=== PATIENT | female | born 1965 | race Caucasian/White ===

== ENCOUNTER 2017-11-01 03:00 | Observation (INO) | payer MEDICAID ==
[~2017-11-01] VITALS: Ht 5703.2 cm; Wt 86.0 kg
[~2017-11-01 03:00] MED LIST: ALBU18HF2 INH; GUAI5SYR5 PO; TIOT18CA3 INH
[2017-11-01] MEDS ORDERED: albuterol 2.5 MG/3 ML nebule NEB ONE (03:10)
[2017-11-01] MEDS ORDERED: albuterol 2.5 MG/3 ML nebule CONTNEB PRN (03:25)
[2017-11-01] MEDS ORDERED: magnesium 2GM in 50ml NS 50 ML IV ONE (03:25)
[2017-11-01] MEDS ORDERED: methylPREDNISolone sod succ 125mg/2ml vial IV ONE (03:25)
[2017-11-01 03:31] LABS: BASOPHILS # (AUTO) 0.1 X10'3 (0-0.2); BASOPHILS % (AUTO) 0.6 % (0-1); EOSINOPHILS # (AUTO) 1.4 X10'3 (0-0.9); EOSINOPHILS % (AUTO) 11.5 % (0-6); HEMATOCRIT 52.7 % (35.0-45.0); HEMOGLOBIN 17.5 g/dl (12.0-16.0); LYMPHOCYTES % (AUTO) 16.3 % (21-51); MEAN CORPUSCULAR HEMOGLOBIN 29.4 PG (27.0-31.0); MEAN CORPUSCULAR HGB CONC 33.3 % (33.0-36.5); MEAN CORPUSCULAR VOLUME 88.4 FL (78-98); MEAN PLATELET VOLUME 8.2 FL (7.4-10.4); MONOCYTES # (AUTO) 0.5 X10'3 (0-0.9); NEUTROPHILS # (AUTO) 8.4 X10'3 (1.8-7.7); NEUTROPHILS % (AUTO) 67.6 % (42-75); PLATELET COUNT 316 X10'3 (140-440); RED BLOOD COUNT 5.97 X10'6 (4.20-5.60); RED CELL DISTRIBUTION WIDTH 14.1 % (11.5-14.5); WHITE BLOOD COUNT 12.4 X10'3 (4.5-11.0)
[2017-11-01 03:45] LABS: PARTIAL THROMBOPLASTIN TIME 27 SECONDS (22-32); PROTHROMBIN TIME 10.3 SECONDS (9.0-12.0)
[2017-11-01 03:56] LABS: ALANINE AMINOTRANSFERASE 29 U/L (12-78); ALBUMIN 4.5 G/DL (3.4-5.0); ALBUMIN/GLOBULIN RATIO 1.2 (1.1-1.5); ALKALINE PHOSPHATASE 91 IU/L (46-116); ANION GAP 9 (8-16); ASPARTATE AMINO TRANSFERASE 19 U/L (10-37); BILIRUBIN,TOTAL 0.3 MG/DL (0.1-1.0); BLOOD UREA NITROGEN 16 MG/DL (7-18); BUN/CREATININE RATIO 18.8 (6.6-38.0); CALCIUM 9.7 MG/DL (8.5-10.1); CHLORIDE 104 MMOL/L (99-107); CREATININE 0.85 MG/DL (0.40-0.90); GLUCOSE 108 MG/DL (70-104); SODIUM 144 MMOL/L (135-145); TOTAL CARBON DIOXIDE 30.8 MMOL/L (24-32); TOTAL PROTEIN 8.4 G/DL (6.4-8.2); eGFR 70 ML/MIN
[2017-11-01] MEDS ORDERED: albuterol 2.5 MG/3 ML nebule NEB PRN (09:45)
[2017-11-01] MEDS ORDERED: normal saline 1000ML IV soln IVB ONE (09:45)
[2017-11-01] MEDS ORDERED: ondansetron/PF 4mg/2ml inj IV PRN (09:45)
[2017-11-01] MEDS ORDERED: magnesium hydroxide 30ml (MOM) UD suspension PO PRN (09:45)
[2017-11-01] MEDS ORDERED: acetaminophen 325mg tablet PO PRN ×2 (09:45)
[2017-11-01] MEDS ORDERED: mag hydrox/Alum hydrox/simeth 30ml oral suspension PO PRN (09:45)
[2017-11-01] MEDS: enoxaparin 40mg/0.4ml syringe SUBCUT SCH (10:10)
[2017-11-01] MEDS: azithromycin 250mg tablet PO SCH (10:10)
[2017-11-01] MEDS: ipratropium/albuterol 3ml nebule NEB SCH ×3 (12:11→19:03)
[2017-11-01] MEDS: HYDROcodone/acetaminophen 5mg/325mg tablet PO PRN (12:43)
[2017-11-01 13:22] LABS: URINE AMPHETAMINE SCREEN POSITIVE (Neg); URINE BARBITUATE SCREEN NEGATIVE (Neg); URINE BENZODIAZEPINES SCREEN NEGATIVE (Neg); URINE CANNABINOID SCREEN NEGATIVE (Neg); URINE COCAINE SCREEN NEGATIVE (Neg); URINE METHADONE SCREEN NEGATIVE (Neg); URINE OPIATE SCREEN NEGATIVE (Neg); URINE PHENCYCLIDINE SCREEN NEGATIVE (Neg)
[2017-11-01] MEDS: methylPREDNISolone sod succ 125mg/2ml vial IV SCH ×2 (15:34→21:02)
[2017-11-01] MEDS: lactobacillus rhamnosus 10,000 MMU CELLS/CAPSULE PO SCH (20:14)
[2017-11-01] MEDS ORDERED: temazepam 15mg capsule PO PRN (21:00)
[2017-11-02] MEDS: ipratropium/albuterol 3ml nebule NEB SCH ×4 (00:29→11:04)
[2017-11-02] MEDS: HYDROcodone/acetaminophen 5mg/325mg tablet PO PRN (01:13)
[2017-11-02 07:31] LABS: BASOPHILS % (AUTO) 0.1 % (0-1); EOSINOPHILS # (AUTO) 0.3 X10'3 (0-0.9); EOSINOPHILS % (AUTO) 1.5 % (0-6); HEMATOCRIT 45.6 % (35.0-45.0); HEMOGLOBIN 15.4 g/dl (12.0-16.0); LYMPHOCYTES # (AUTO) 1.4 X10'3 (1.1-4.8); LYMPHOCYTES % (AUTO) 6.9 % (21-51); MEAN CORPUSCULAR HGB CONC 33.9 % (33.0-36.5); MEAN CORPUSCULAR VOLUME 88.5 FL (78-98); MEAN PLATELET VOLUME 8.3 FL (7.4-10.4); MONOCYTES # (AUTO) 0.5 X10'3 (0-0.9); MONOCYTES % (AUTO) 2.5 % (2-12); NEUTROPHILS # (AUTO) 18.2 X10'3 (1.8-7.7); PLATELET COUNT 311 X10'3 (140-440); RED BLOOD COUNT 5.15 X10'6 (4.20-5.60); RED CELL DISTRIBUTION WIDTH 15.1 % (11.5-14.5); WHITE BLOOD COUNT 20.4 X10'3 (4.5-11.0)
[2017-11-02 07:45] LABS: ALBUMIN 3.5 G/DL (3.4-5.0); ANION GAP 10 (8-16); BLOOD UREA NITROGEN 18 MG/DL (7-18); BUN/CREATININE RATIO 22.2 (6.6-38.0); CALCIUM 9.1 MG/DL (8.5-10.1); CHLORIDE 106 MMOL/L (99-107); CREATININE 0.81 MG/DL (0.40-0.90); GLUCOSE 139 MG/DL (70-104); POTASSIUM 4.3 MMOL/L (3.5-5.1); SODIUM 142 MMOL/L (135-145); TOTAL CARBON DIOXIDE 26.1 MMOL/L (24-32); eGFR 74 ML/MIN
[2017-11-02] MEDS: azithromycin 250mg tablet PO SCH (08:43)
[2017-11-02] MEDS: lactobacillus rhamnosus 10,000 MMU CELLS/CAPSULE PO SCH (08:43)
[2017-11-02] MEDS: methylPREDNISolone sod succ 125mg/2ml vial IV SCH (08:44)
[2017-11-02] MEDS: enoxaparin 40mg/0.4ml syringe SUBCUT SCH (08:47)
[2017-11-02] MEDS ORDERED: OMEP20TA23 PO (14:11)
[2017-11-02] MEDS ORDERED: PRED10TA23 PO (14:11)
[2017-11-02] MEDS ORDERED: CEPH500C5 PO (14:11)
[2017-11-02 15:01] VITALS: BP 131/68
== END 2017-11-02 18:10 | disposition home or self-care (01) ==
LOC: ER 03:00 → ED HOLD 09:43 → EDBEDREQ 11-02 09:55
PROVIDERS: ADMIT Hospitalist; ATTEND Hospitalist
DX: J44.1 Chronic obstructive pulmonary disease with (acute) exacerbation (principal); J45.901 Unspecified asthma with (acute) exacerbation; J96.01 Acute respiratory failure with hypoxia; E86.0 Dehydration; Z87.891 Personal history of nicotine dependence; Z77.22 Contact with and (suspected) exposure to environmental tobacco smoke (acute) (chronic); Z91.14 Patient's other noncompliance with medication regimen
CPT/HCPCS: 36415; 70360; 71045; 80048; 80053; 80305; 83880; 84484; 85025; 85610; 85730; 87070; 93005; 94640; 94760; 96361; 96365; 96366; 96372; 96375; 96376; 99285; G0378; J1650; J2930; J3475; J7030